=== PATIENT | male | born 1955 | race Native Hawaiian/Other Pacific Islander ===

== ENCOUNTER 2017-01-04 14:00 | Outpatient (CLI) | payer BC ==
[2017-01-04 15:35] LABS: POTASSIUM 4.4 mmol/L (3.6-5.2); SODIUM 135 mmol/L (136-145)
== END 2017-01-04 15:30 | disposition home or self-care (01) ==
LOC: LABW 14:00
PROVIDERS: Internal Medicine Cardiovascular Disease
DX: Z79.899 Other long term (current) drug therapy (principal); Z51.81 Encounter for therapeutic drug level monitoring; R06.02 Shortness of breath; I50.9 Heart failure, unspecified
CPT/HCPCS: 36415; 80048; 83880; 85651

== ENCOUNTER 2019-01-09 07:25 | Outpatient (CLI) | payer BC, OTHER ==
[2019-01-09 08:01] LABS: PLATELET COUNT 189 K/uL (142-355)
[2019-01-09 08:03] LABS: POTASSIUM 4.2 mmol/L (3.6-5.2)
== END 2019-01-09 19:37 | disposition home or self-care (01) ==
LOC: LABW 07:25
PROVIDERS: Internal Medicine Cardiovascular Disease
DX: Z79.899 Other long term (current) drug therapy (principal)
CPT/HCPCS: 36415; 80053; 80061; 85027

== ENCOUNTER 2020-03-24 11:22 | Outpatient (CLI) | payer OTHER | END 2020-03-24 21:50 | disposition home or self-care (01) | LOC: INF 11:22 | PROVIDERS: ATTEND Internal Medicine Endocrinology, Diabetes & Metabolism | DX: Z23 Encounter for immunization (principal) | CPT/HCPCS: 96372 ==

== ENCOUNTER 2020-04-21 12:41 | Outpatient (CLI) | payer OTHER | END 2020-04-21 22:48 | disposition home or self-care (01) | LOC: INF 12:41 | PROVIDERS: ATTEND Internal Medicine Endocrinology, Diabetes & Metabolism | DX: Z23 Encounter for immunization (principal) | CPT/HCPCS: 96372 ==

== ENCOUNTER 2020-12-07 09:11 | Outpatient (CLI) | payer OTHER ==
[2020-12-07 09:30] LABS: PLATELET COUNT 181 K/uL (142-355)
[2020-12-07 09:45] LABS: POTASSIUM 4.2 mmol/L (3.6-5.2)
== END 2020-12-07 19:59 | disposition home or self-care (01) ==
LOC: RESP 09:11
PROVIDERS: ATTEND Internal Medicine Cardiovascular Disease
DX: I10 Essential (primary) hypertension (principal); R09.89 Other specified symptoms and signs involving the circulatory and respiratory systems; Z79.899 Other long term (current) drug therapy
CPT/HCPCS: 36415; 80053; 80061; 85027

== ENCOUNTER 2021-06-03 16:12 | Emergency (ER) | payer OTHER ==
[~2021-06-03] VITALS: Ht 195.6 cm; Wt 113.4 kg
[2021-06-03 19:35] VITALS: BP 160/90; TEMP 97
== END 2021-06-03 19:35 | disposition home or self-care (01) ==
LOC: ED 16:12
DX: M54.16 Radiculopathy, lumbar region (principal); M54.42 Lumbago with sciatica, left side
CPT/HCPCS: 81000; 96372; 99283; J1170; J1885; J2405; J2930

== ENCOUNTER 2022-04-08 07:08 | Outpatient (CLI) | payer OTHER | END 2022-04-08 19:02 | disposition home or self-care (01) | LOC: LABW 07:08 | PROVIDERS: Nurse Practitioner Family; ATTEND Internal Medicine Cardiovascular Disease | DX: E78.49 Other hyperlipidemia (principal) | CPT/HCPCS: 36415; 80061 ==

== ENCOUNTER 2022-04-29 08:14 | Outpatient (CLI) | payer OTHER | END 2022-04-29 21:18 | disposition home or self-care (01) | LOC: CT 08:14 | PROVIDERS: ATTEND Internal Medicine | DX: M54.59 Other low back pain (principal) ==